=== PATIENT | female | born 1930 | race Caucasian/White ===

== ENCOUNTER 2020-09-23 20:49 | Inpatient (IN) ==
[2020-09-23] MEDS ORDERED: Hyoscyamine SL 0.125 MG TAB.SUBL SL PRN (22:13)
[2020-09-23] MEDS ORDERED: NON-FORMULARY MEDICATION 1 EACH EACH (Oxygen 1 EACH Each) PRN (22:13)
[2020-09-24] MEDS ORDERED: haloperidoL 1 MG TABLET PO PRN
[2020-09-24] MEDS: Furosemide 20 MG TABLET PO SCH (09:27)
[2020-09-24] MEDS: carvediloL 6.25 MG TABLET PO SCH ×2 (09:27→16:40)
[2020-09-24] MEDS: *HR* LORazepam 0.5 MG TABLET PO PRN ×2 (11:58→21:59)
[2020-09-24] MEDS: *HR* HYDROcodone/Acet 7.5/325 mg TABLET PO PRN (22:47)
[2020-09-25] MEDS: Furosemide 20 MG TABLET PO SCH (07:58)
[2020-09-25] MEDS: carvediloL 6.25 MG TABLET PO SCH ×2 (07:58→17:16)
[2020-09-25] MEDS: *HR* LORazepam 0.5 MG TABLET PO PRN (18:48)
[2020-09-25] MEDS: *HR* HYDROcodone/Acet 7.5/325 mg TABLET PO PRN (18:48)
[2020-09-26] MEDS: Furosemide 20 MG TABLET PO SCH (09:22)
[2020-09-26] MEDS: carvediloL 6.25 MG TABLET PO SCH ×2 (09:22→17:22)
[2020-09-26] MEDS: *HR* HYDROcodone/Acet 7.5/325 mg TABLET PO PRN ×2 (09:23→22:46)
[2020-09-26] MEDS: *HR* LORazepam 0.5 MG TABLET PO PRN (22:46)
[2020-09-27] MEDS: Furosemide 20 MG TABLET PO SCH (09:27)
[2020-09-27] MEDS: carvediloL 6.25 MG TABLET PO SCH ×2 (09:28→16:12)
[2020-09-27] MEDS: *HR* HYDROcodone/Acet 7.5/325 mg TABLET PO PRN (09:31)
[2020-09-27] MEDS: *HR* LORazepam 0.5 MG TABLET PO PRN ×2 (10:10→20:56)
[2020-09-28] MEDS: Furosemide 20 MG TABLET PO SCH (09:22)
[2020-09-28] MEDS: carvediloL 6.25 MG TABLET PO SCH ×2 (09:22→16:45)
[2020-09-28] MEDS: *HR* LORazepam 0.5 MG TABLET PO PRN ×2 (13:13→21:40)
[2020-09-29] MEDS: Furosemide 20 MG TABLET PO SCH (08:45)
[2020-09-29] MEDS: *HR* LORazepam 0.5 MG TABLET PO PRN (08:47)
[2020-09-29] MEDS: carvediloL 6.25 MG TABLET PO SCH ×3 (08:47→18:21)
[2020-09-29] MEDS: *HR* HYDROcodone/Acet 7.5/325 mg TABLET PO PRN (08:47)
[2020-09-29] MEDS ORDERED: Ipratropium/Albuterol Neb 3 ML IH PRN (19:52)
[2020-09-30] MEDS: *HR* HYDROcodone/Acet 7.5/325 mg TABLET PO PRN (05:17)
[2020-09-30] MEDS: *HR* LORazepam 0.5 MG TABLET PO PRN ×2 (05:17→22:00)
[2020-09-30] MEDS: carvediloL 6.25 MG TABLET PO SCH ×2 (11:45→17:05)
[2020-09-30] MEDS: Furosemide 20 MG TABLET PO SCH (11:45)
[2020-10-01] MEDS: *HR* LORazepam 0.5 MG TABLET PO PRN (11:52)
[2020-10-01] MEDS: carvediloL 6.25 MG TABLET PO SCH ×2 (11:52→17:13)
[2020-10-01] MEDS: Furosemide 20 MG TABLET PO SCH (11:52)
[2020-10-02] MEDS: *HR* LORazepam 0.5 MG TABLET PO PRN (07:45)
[2020-10-02] MEDS: Furosemide 20 MG TABLET PO SCH (07:45)
[2020-10-02] MEDS: carvediloL 6.25 MG TABLET PO SCH (07:46)
[2020-10-02] MEDS: Acetaminophen 650 MG RECTAL SUPP RC PRN ×2 (07:46→20:13)
[2020-10-02] MEDS ORDERED: *HR* LORazepam Oral Conc 2 MG/ML PO PRN (09:49)
[2020-10-03] MEDS: *HR* LORazepam Oral Conc 2 MG/ML PO PRN (16:26)
[2020-10-03] MEDS: Acetaminophen 650 MG RECTAL SUPP RC PRN (20:13)
[2020-10-04] MEDS: Morphine Sulfate Oral CONC 10 MG/0.5 ML ORAL.SYG PO PRN ×4 (10:23→21:45)
[2020-10-04] MEDS: Acetaminophen 650 MG RECTAL SUPP RC PRN ×2 (13:05→21:47)
[2020-10-05] MEDS: *HR* LORazepam Oral Conc 2 MG/ML PO PRN ×3 (00:09→15:23)
[2020-10-05] MEDS: Morphine Sulfate Oral CONC 10 MG/0.5 ML ORAL.SYG PO PRN ×5 (00:09→15:22)
[2020-10-05 10:04] VITALS: BP 101/65; PULSE 126; RESP 24; TEMP 102.2; O2SAT 95
[2020-10-05] MEDS: Acetaminophen 650 MG RECTAL SUPP RC PRN (10:28)
== END 2020-10-05 18:04 | disposition expired | DRG 951 ==
LOC: INPPIK 21:21
PROVIDERS: ADMIT Family Medicine; ATTEND Family Medicine